=== PATIENT | female | born 1965 | race Caucasian/White ===

== ENCOUNTER 2017-05-22 11:40 | Emergency (ER) | payer OTHER ==
[~2017-05-22] VITALS: Ht 152.4 cm; Wt 46.3 kg
[2017-05-22] MEDS ORDERED: ONDA4ODT PO (12:35)
[2017-05-22] MEDS ORDERED: OMEPPI 20 MG-11 EACH PO (12:36)
[2017-05-22] MEDS ORDERED: LEVSOD100 PO (12:36)
[2017-05-22] MEDS ORDERED: Desyrel50 MG PO (12:36)
[2017-05-22] MEDS ORDERED: Bentyl20 MG PO (12:36)
[2017-05-22] MEDS ORDERED: ESCI10 PO (12:38)
[2017-05-22 13:10] LABS: Source, Urine Clean Catch
[2017-05-22 13:23] LABS: Bilirubin, Urine Neg (Neg); Blood, Urine 2+ (Neg); Glucose Qualitative, Urine Neg (Neg); Ketones, Urine Neg (Neg); Leukocyte Esterase, Urine 2+ (Neg); Nitrite, Urine Neg (Neg); Protein, Urine Neg (Neg); Urobilinogen, Urine NORM (Normal)
[2017-05-22 13:36] LABS: Appearance, Urine Clear (Clear); Color, Urine Pale Yellow (P-Yellow); White Blood Cells, Urine 50-100 /hpf (0-5)
[2017-05-22 13:37] LABS: Bacteria Mod /hpf; Squamous Epithelial Cells Mod /hpf (Few)
[2017-05-22] MEDS ORDERED: IBUP600 PO (13:43)
[2017-05-22] MEDS ORDERED: CYCL10 PO (13:43)
[2017-05-22] MEDS ORDERED: Keflex500 MG PO (13:43)
[2017-10-04] MEDS ORDERED: TRAZ150T57 PO (12:48)
[2017-10-04] MEDS ORDERED: Citalopram HBr10 MG PO (12:48)
[2017-10-04] MEDS ORDERED: LEVSOD100 PO (12:49)
[2017-10-04] MEDS ORDERED: Omeprazole20 M1 PO (12:50)
[2017-10-04] MEDS ORDERED: ONDA4 PO (12:54)
[2017-10-04] MEDS ORDERED: HYDHCL25 PO (12:54)
== END 2017-05-22 13:51 | disposition home or self-care (01) ==
LOC: ER 11:40
PROVIDERS: Physician Assistant
DX: N39.0 Urinary tract infection, site not specified (principal); Z79.899 Other long term (current) drug therapy; Z79.2 Long term (current) use of antibiotics; F17.210 Nicotine dependence, cigarettes, uncomplicated
CPT/HCPCS: 81001; 87086; 96372; 99283; J1885

== ENCOUNTER → 2017-07-28 | Outpatient (CLI) | payer OTHER ==
[~2017-07-28] MED LIST: Bentyl20 MG PO; CYCL10 PO; Desyrel50 MG PO; ESCI10 PO; IBUP600 PO; Keflex500 MG PO; LEVSOD100 PO; OMEPPI 20 MG-11 EACH PO; ONDA4ODT PO
[2017-07-30 12:57] LABS: HPV Genotype 16 Not Detected (NOTDET); HPV Genotype 18 Not Detected (NOTDET)
[2017-08-04 08:27] LABS: HPV High Risk Other Detected (NOTDET)
== END ==
LOC: LAB SHORT 09:00 → LAB 09:00
PROVIDERS: Nurse Practitioner Family
DX: Z12.4 Encounter for screening for malignant neoplasm of cervix (principal)
CPT/HCPCS: 87624; G0145

== ENCOUNTER 2017-10-13 13:22 | Emergency (ER) | payer OTHER ==
[~2017-10-13] VITALS: Ht 152.4 cm; Wt 53.1 kg
[~2017-10-13 13:22] MED LIST changes: +Citalopram HBr10 MG PO; +HYDHCL25 PO; +ONDA4 PO; +Omeprazole20 M1 PO; +TRAZ150T57 PO
[2017-10-13 14:09] LABS: BASOPHILS ABSOLUTE AUTO 0.04 K/mm3 (0.00-0.23); BASOPHILS PERCENT AUTO 0 % (0-2); EOSINOPHILS ABSOLUTE AUTO 0.03 K/mm3 (0.00-0.68); EOSINOPHILS PERCENT AUTO 0 % (0-6); Hematocrit 41.4 % (33.0-51.0); Hemoglobin 14.7 g/dL (11.5-16.0); IMMATURE GRAN ABSOLUTE AUTO 0.05 K/mm3 (0.00-0.10); IMMATURE GRAN PERCENT AUTO 0 % (0-1); LYMPHOCYTES ABSOLUTE AUTO 2.36 K/mm3 (0.84-5.20); LYMPHOCYTES PERCENT AUTO 19 % (21-46); MONOCYTES ABSOLUTE AUTO 0.91 K/mm3 (0.16-1.47); MONOCYTES PERCENT AUTO 7 % (4-13); Mean Corpuscular HGB 31.6 pg (26.0-34.0); Mean Corpuscular HGB Conc 35.5 g/dL (31.5-36.5); Mean Corpuscular Volume 89 fL (80-100); Mean Platelet Volume 8.9 fL (9.1-12.4); NEUTROPHILS ABSOLUTE AUTO 8.88 K/mm3 (1.96-9.15); NEUTROPHILS PERCENT AUTO 73 % (41-73); Platelet Count 411 K/mm3 (150-400); RDW Coefficient Variation 12.1 % (11.7-14.2); RDW Standard Deviation 39.6 fL (35.1-46.3); Red Blood Cell Count 4.65 M/mm3 (3.80-5.20); White Blood Cell Count 12.27 K/mm3 (4.00-11.30)
[2017-10-13 14:33] LABS: Alanine Aminotransfer (ALT/SGP 18 U/L (12-78); Albumin, Blood 4.4 g/dL (3.4-5.0); Albumin/Globulin Ratio 1.2 (0.8-1.8); Alk Phos 101 U/L (50-136); Anion Gap 13 mmol/L (6-16); Aspartate Aminotrans (AST/SGOT 28 U/L (12-37); Blood Urea Nitrogen 7 mg/dL (8-24); Bun/Creatinine Ratio 10.3 (12.0-20.0); CO2, Blood 22 mmol/L (21-32); Calcium, Blood 9.2 mg/dL (8.5-10.1); Chloride, Blood 101 mmol/L (98-108); Creatinine, Blood 0.68 mg/dL (0.40-1.00); Globulin, Blood 3.6 g/dL (2.2-4.0); Glomerular Filtration Rate >60 (60-); Glucose, Blood 110 mg/dL (70-99); Potassium, Blood 3.2 mmol/L (3.5-5.5); Sodium, Blood 136 mmol/L (136-145)
[2017-10-13] MEDS ORDERED: PRAZ1 PO (14:43)
== END 2017-10-13 16:35 | disposition home or self-care (01) ==
LOC: ER 13:22
PROVIDERS: Emergency Medicine
DX: K52.9 Noninfective gastroenteritis and colitis, unspecified (principal); F15.10 Other stimulant abuse, uncomplicated; F41.9 Anxiety disorder, unspecified; Z79.899 Other long term (current) drug therapy; F32.9 Major depressive disorder, single episode, unspecified; E03.9 Hypothyroidism, unspecified; F17.210 Nicotine dependence, cigarettes, uncomplicated
CPT/HCPCS: 36415; 51701; 80053; 81000; 83690; 85025; J1885; J2060

== ENCOUNTER 2019-03-17 23:09 | Inpatient (IN) | payer OTHER ==
[~2019-03-17] VITALS: Ht 152.4 cm; Wt 51.7 kg
[~2019-03-17 23:09] MED LIST changes: +PRAZ1 PO
[2019-03-17 23:28] LABS: BASOPHILS ABSOLUTE AUTO 0.06 K/mm3 (0.00-0.23); BASOPHILS PERCENT AUTO 1 % (0-2); EOSINOPHILS ABSOLUTE AUTO 1.02 K/mm3 (0.00-0.68); EOSINOPHILS PERCENT AUTO 11 % (0-6); Hematocrit 39.7 % (33.0-51.0); Hemoglobin 13.3 g/dL (11.5-16.0); IMMATURE GRAN ABSOLUTE AUTO 0.16 K/mm3 (0.00-0.10); IMMATURE GRAN PERCENT AUTO 2 % (0-1); LYMPHOCYTES ABSOLUTE AUTO 3.68 K/mm3 (0.84-5.20); LYMPHOCYTES PERCENT AUTO 39 % (21-46); MONOCYTES ABSOLUTE AUTO 0.62 K/mm3 (0.16-1.47); MONOCYTES PERCENT AUTO 7 % (4-13); Mean Corpuscular HGB 32.8 pg (26.0-34.0); Mean Corpuscular HGB Conc 33.5 g/dL (31.5-36.5); Mean Platelet Volume 8.5 fL (9.1-12.4); NEUTROPHILS ABSOLUTE AUTO 3.88 K/mm3 (1.96-9.15); NEUTROPHILS PERCENT AUTO 41 % (41-73); Platelet Count 316 K/mm3 (150-400); RDW Coefficient Variation 13.1 % (11.7-14.2); RDW Standard Deviation 47.2 fL (35.1-46.3); Red Blood Cell Count 4.05 M/mm3 (3.80-5.20); White Blood Cell Count 9.42 K/mm3 (4.00-11.30)
[2019-03-17 23:32] LABS: Source, Urine Clean Catch
[2019-03-17 23:32] LABS: Mean Corpuscular Volume 98 fL (80-100)
[2019-03-17 23:36] LABS: Appearance, Urine Clear (Clear); Bilirubin, Urine Neg (Neg); Blood, Urine Neg (Neg); Color, Urine Pale Yellow (P-Yellow); Glucose Qualitative, Urine Neg (Neg); Ketones, Urine Neg (Neg); Leukocyte Esterase, Urine Neg (Neg); Nitrite, Urine Neg (Neg); Protein, Urine Neg (Neg); Urobilinogen, Urine NORM (Normal)
[2019-03-17] MEDS ORDERED: OXYB5 PO (23:37)
[2019-03-17] MEDS ORDERED: TRAZ100 PO (23:38)
[2019-03-17] MEDS ORDERED: HYDPAM50 PO (23:38)
[2019-03-17] MEDS ORDERED: NAPR500 PO (23:39)
[2019-03-17] MEDS ORDERED: PRAZ1 PO (23:39)
[2019-03-17] MEDS ORDERED: FAMO20 PO (23:39)
[2019-03-17] MEDS ORDERED: OMEPRAZOLE20 MG PO (23:40)
[2019-03-17 23:46] LABS: Ethanol (Alcohol), Blood, Med 255 mg/dL; Salicylate 3.6 mg/dL (2.8-20.0)
[2019-03-17 23:47] LABS: Alanine Aminotransfer (ALT/SGP 20 U/L (12-78); Albumin, Blood 4.5 g/dL (3.4-5.0); Albumin/Globulin Ratio 1.6 (0.8-1.8); Alk Phos 81 U/L (50-136); Anion Gap 8 mmol/L (6-16); Aspartate Aminotrans (AST/SGOT 24 U/L (12-37); Bilirubin, Total 0.7 mg/dL (0.1-1.0); Blood Urea Nitrogen 10 mg/dL (8-24); Bun/Creatinine Ratio 16.6 (12.0-20.0); CO2, Blood 26 mmol/L (21-32); Chloride, Blood 99 mmol/L (98-108); Globulin, Blood 2.8 g/dL (2.2-4.0); Glomerular Filtration Rate >60 (60-); Glucose, Blood 87 mg/dL (70-99); Potassium, Blood 3.8 mmol/L (3.5-5.5); Sodium, Blood 133 mmol/L (136-145); Total Protein, Blood 7.3 g/dL (6.4-8.2)
[2019-03-17 23:47] LABS: U Amphetamine Screen Not Detected; U Barbituate Screen Not Detected; U Benzodiazapine Screen Not Detected; U Buprenorphine Screen Not Detected; U Cannabinoids Screen DETECTED; U Cocaine Screen Not Detected; U Methadone Screen Not Detected; U Methamphetamine Screen Not Detected; U Opiates Screen Not Detected; U Oxycodone Screen Not Detected; U Phencyclidine Screen Not Detected; U Propoxyphene Screen Not Detected
[2019-03-17 23:56] LABS: Acetaminophen, Random <2.0 ug/mL (10.0-30.0)
--- NOTE | 2019-03-18 01:05 | NUR ---
PT ARRIVES FROM ER TO ICU 7 VIA GURNEY FOR DX OVERDOSE WITH SUICIDAL INTENT, PT SLIDE TRANSFERRED TO BED WITH 3 STAFF ASSIST AND TOLERATES WELL. SHE ADMITS THAT SHE OVERDOSED WITH TRAZODONE 30 100 MG TABLETS, AND CONSUMED A 6 PACK OF BEER, SHE STATES THAT SHE WAS TRYING TO END HER LIFE AND THAT SHE CONTINUES TO WANT TO END HER LIFE AT THIS TIME. SHE RESTS QUIETLY WHEN UNDISTURBED HOWEVER ROUSES EASILY TO VERBAL STIMULI AT THIS TIME. SHE IS ABLE TO STATE THAT THIS IS TUESDAY IN MARCH 2019 HOWEVER SHE STATES THAT SHE DOES NOT TRACK THE EXACT DATE AT BASELINE. SHE IS ABLE TO STATE THAT SHE IS IN THE HOSPITAL IN "EITHER [place] OR [place], I'M NOT SURE" REORIENTED TO BEING IN [place]. PT DENIES NAUSEA ON ARRIVAL TO ICU HOWEVER HAS 300 ML OF DARK REDMAN/GREEN EMESIS PRIOR TO COMPLETION OF ADMISSION ASSESSMENT. SHE IS SLOW TO RESPOND VERBALLY AND IS NOTED TO SLUR HER WORDS. ADMITS TO PAIN TO RIGHT RIBS THAT SHE STATES HAS BEEN ONGOING X 4 WEEKS, STATES THAT SHE FELL CHASING HER DOG AT THAT TIME. SHE IS SPEAKING IN FULL SENTENCES, NO VISIBLE INCREASED WORK OF BREATHING, LUNGS CLEAR THROUGHOUT AND PT MAINTAINS OXYGEN SATURATION MID TO UPPER 90S AT THIS TIME. HRR, SINUS RHYTHM NOTED ON MONITOR, RATE 80S, PULSES ARE FULL X 4 EXTREMITIES, SKIN IS PWD, PRESSURE MAINTAINING, NO EDEMA IS NOTED. ABD MODERATELY DISTENDED, PT STATES THAT THIS IS NEW FOR HER, NO GRIMACING IS NOTED WITH PALPATION, PT DOES REPORT FEELING NEED TO VOID. 475 ML CLEAR PALE YELLOW URINE IN BEDPAN WITH OVERFLOW NOTED TO SHEETS, PT TOLERATED WELL. DISCUSSED ICU ADMISSION FOR OVERDOSE WITH PT WELL HIGH RISK SUICIDE PRECAUTIONS INCLUDING SITTER AT BEDSIDE, UNDERSTANDING VERBALIZED.
[2019-03-18] MEDS ORDERED: LEVSOD25 PO (01:23)
[2019-03-18 05:24] LABS: Hematocrit 34.8 % (33.0-51.0); Hemoglobin 11.8 g/dL (11.5-16.0); Mean Corpuscular HGB 32.7 pg (26.0-34.0); Mean Corpuscular HGB Conc 33.9 g/dL (31.5-36.5); Mean Corpuscular Volume 96 fL (80-100); Mean Platelet Volume 8.5 fL (9.1-12.4); Platelet Count 307 K/mm3 (150-400); RDW Standard Deviation 46.2 fL (35.1-46.3); Red Blood Cell Count 3.61 M/mm3 (3.80-5.20); White Blood Cell Count 6.41 K/mm3 (4.00-11.30)
[2019-03-18 05:47] LABS: Salicylate 3.7 mg/dL (2.8-20.0)
[2019-03-18 05:48] LABS: Alanine Aminotransfer (ALT/SGP 19 U/L (12-78); Albumin, Blood 3.6 g/dL (3.4-5.0); Albumin/Globulin Ratio 1.4 (0.8-1.8); Alk Phos 68 U/L (50-136); Anion Gap 10 mmol/L (6-16); Aspartate Aminotrans (AST/SGOT 17 U/L (12-37); Bilirubin, Total 0.8 mg/dL (0.1-1.0); Blood Urea Nitrogen 8 mg/dL (8-24); CO2, Blood 22 mmol/L (21-32); Calcium, Blood 7.7 mg/dL (8.5-10.1); Chloride, Blood 107 mmol/L (98-108); Creatinine, Blood 0.57 mg/dL (0.40-1.00); Globulin, Blood 2.6 g/dL (2.2-4.0); Glomerular Filtration Rate >60 (60-); Glucose, Blood 80 mg/dL (70-99); Potassium, Blood 4.3 mmol/L (3.5-5.5); Sodium, Blood 139 mmol/L (136-145); Total Protein, Blood 6.2 g/dL (6.4-8.2)
--- NOTE | 2019-03-18 06:31 | NUR ---
PT NEW ADMIT THIS SHIFT FOR OVERDOSE, STATES THAT SHE TOOK HER TRAZODONE AND "THE OTHER ONE THAT MAKES YOU SLEEPY" ALONG WITH A 6 PACK OF BEER. SHE REMAINS AROUSABLE TO VERBAL STIMULI THIS AM AND AWARE THAT SHE IS HOSPITALIZED FOR OVERDOSE ATTEMPT. SHE DID HAVE ONE EPISODE OF EMESIS DURING ADMISSION ASSESSMENT HOWEVER DENIED COMPLAINT OF NAUSEA BOTH PRIOR TO EMESIS AND AFTERWARD. SHE ADMITS TO ATTEMPTING TO END HER LIFE WITH THE OVERDOSE AND STATES THAT SHE DOES STILL FEEL SUICIDAL. LUNGS REMAIN CLEAR THROUGHOUT, SATS MAINTAIN ON ROOM AIR, PT IS NOTED TO SNORE WITH SLEEP WHICH SHE REPORTS HER BASELINE, SHE HAS BEEN TOLD THAT SHE HAS PERIODS OF APNEA WITH SLEEP AN OUTPT WELL, SATS RARELY DECREASE TO 89% ON ROOM AIR OTHERWISE MID 90S. HRR, SINUS RHYTHM CONTINUES, RATE 70S, BLOOD PRESSURE MAINTAINING, PULSES REMAIN FULL, NO EDEMA NOTED. WILL CONT TO MONITOR AND REPORT TO DAY SHIFT.
--- NOTE | 2019-03-18 09:14 | NUR ---
SPOKE TO POISON CONTROL REGARDING SALICYLATE LEVEL THIS MORNING. REPORTED LEVEL OF 3.5. POISON CONTROL PERSONNEL STATED NO FURTHER SALICYLATE LEVELS NEED TO BE DRAWN.
--- NOTE | 2019-03-18 12:04 | NUR ---
REASSESSMENT: PATIENT ALERT AND COOPERATIVE, WITHDRAWN WITH FLAT AFFECT. HRR, VSS. STATES PAIN IS WITHIN HER ACCEPTABLE LEVEL AT THIS TIME. COOPERATIVE WITH SHOWER. SEEN BY COMPASS PERSONNEL EARLIER. SALICYLATE LEVEL 3.5, NO FURTHER LABS NEEDED PER POISON CONTROL.
--- NOTE | 2019-03-18 16:45 | NUR ---
RECEIVED REPORT FROM NISH GILLIS RN, ASSUMED CARE, PATIENT IS A 1:1 SITTER AT BEDSIDE, ON MONITOR, HIGH RISK SUICIDE, PATIENT IS SLEEPING AT THIS TIME, AFEBRILE, NO SIGNS OF PAIN NOTED, CALL LIGHT IN REACH, WILL CONTINUE TO MONITOR.
--- NOTE | 2019-03-18 17:55 | NUR ---
SHIFT SUMMARY NOTE: NO ACUTE EVENTS DURING THIS SHIFT, PATIENT IS A HIGH RISK SUICIDE AND IS ON MONITOR AND HAS A 1:1 SITTER AT BEDSIDE, TELEPSYCHE SCHEDULED FOR 20:15 THIS EVENING, PATIENT HAS BEEN SLEEPING MOST OF THE DAY, RECEIVED A SHOWER, POISON CONTROL HAS SIGNED OFF AT THIS TIME, FOR DETAILS PLEASE SEE SHIFT ASSESSMENT DOCUMENTATIONS AND NURSES NOTES, CALL LIGHT IN REACH, WILL CONTINUE TO MONITOR AND GIVE REPORT TO ONCOMING NOC SHIFT.
--- NOTE | 2019-03-18 21:25 | NUR ---
ASSUMPTION OF CARE: PT ALERT BUT SLEEPY. NO THOUGHTS OF SELF HARM AT THIS TIME. PT IS WITHDRAWN AND AFFECT IS FLAT. HOWEVER PT IS COOPERATIVE. LUNG SOUNDS CLEAR. SP02 >90% ON RA. SBP AND PULSE STABLE. BOWEL TONES PRESENT. NO BM SO FAR. PT ABLE TO VOID ON OWN. WILL CONTINUE TO MONITOR.
--- NOTE | 2019-03-19 05:50 | NUR ---
SHIFT SUMMARY: NO COMPLAINTS THIS SHIFT. DENIES S/I/SELF HARM. VITALS STABLE. NSR, BRADYCARDIA WHILE SLEEPING-HR IN 40S. HOWEVER, WHEN AWAKE HR IN THE 60S. 20G LAC SL, 18G RAC SL.
--- NOTE | 2019-03-19 09:30 | NUR ---
AM ASSESSMENT PT UNDER CONSTANT ONE ON ONE SUPERVISION R/T DX. PT RESTING IN BED, OPENS EYES TO VOICE, A&OX4, DENIES DESIRE TO HARM SELF. PT HEART RATE 60-70s, NSR. LUNGS CTA, RM AIR. BS PRESENT. PT STATES HAS SOFT STOOLS AND URGE INCONTINENCE. SHE STATES SHE WEARS A PAD OR PULLUP ALL THE TIME. PT AMBULATES SELF TO BATHROOM WITH SUPERVISION. PT SPOKE WITH THE STOVE BOTTOM WORKER AFTER DR. MAN STATES PT CAN GO HOME TODAY. FOLLOWUP APPOINTMENTS WILL BE MADE BY THIS RN AND INCLUDED IN DC PAPERWORK ACCORDING TO DC ORDERS.
[2019-03-19] MEDS ORDERED: LEVSOD50 PO (11:57)
[2019-03-19] MEDS ORDERED: CITA20 PO (11:58)
[2019-03-19] MEDS ORDERED: LEVSOD100 PO (12:15)
--- NOTE | 2019-03-19 13:00 | NUR ---
FOLLOW UP APPTS FOLLOW UP APPOINTMENT MADE WITH DR. SALENA JAMISON FOR 03/28 @ 2393. PT INFORMED OF APPOINTMENT. PT IS TO F/U WITH [facility] AND NO APPOINTMENT NEEDED WALK-INS ARE WELCOME. PT AWARE OF THIS ALSO. SCRIPT FOR TSH IN 4-6 WEEKS GIVEN TO PT AND INSTRUCTIONS GIVEN ALONG WITH MEDICATION CHANGE FOR SYNTHROID. ALL QUESTIONS ANSWERED AT THIS TIME. DC TO FOLLOW SOON.
--- NOTE | 2019-03-19 13:45 | NUR ---
DISCHARGE NOTE PT IVs DC'D. DISCHARGE INSTRUCTIONS GIVEN, INCLUDING CHANGING SYNTHROID DOSE TO 0.1mg AND CYMBALTA AND SYNTHROID ARE READY TO BE PICKED UP AT [facility]. BOYFRIEND, ED, ALSO INFORMED OF NEED TO STOP FOR PRESCRIPTIONS ON THE WAY HOME. PT SUICIDE AWARENESS INFO AND HOTLINE NUMBERS STRESSED. PT REMOVED FROM MONITOR. PT DRESSED SELF. PT AND ALL BELONGINGS, INCLUDING PHONE AND MEDICATIONS ARE TAKEN OUTSIDE IN W/C BY THIS RN WITHOUT DIFFICULTIES. PT BOYFRIEND, ED, TO TAKE HOME PER PRIVATE VEHICLE. DOG WITH PT AND PT SEEMS HAPPY TO BE DISCHARGED HOME. PT CONTINUES TO DENY DESIRE TO HARM SELF.
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
== END 2019-03-19 14:00 | disposition home or self-care (01) | DRG 918 ==
LOC: ER 23:09 → ICUE 23:10 → ICUW 23:10 → ICUE 03-18 01:04
PROVIDERS: Emergency Medicine; ADMIT Internal Medicine
DX: T43.212A Poisoning by selective serotonin and norepinephrine reuptake inhibitors, intentional self-harm, initial encounter (principal); E03.9 Hypothyroidism, unspecified; F41.8 Other specified anxiety disorders; G47.00 Insomnia, unspecified; K21.9 Gastro-esophageal reflux disease without esophagitis; F10.129 Alcohol abuse with intoxication, unspecified; Z79.899 Other long term (current) drug therapy
CPT/HCPCS: 36415; 80053; 81003; 81025; 83735; 84439; 84443; 85025; 85027; 86704; 86708; 86803; 87340; 93005; 93010; 96360; 96361; 96372; 99285-25; G0378; G0480; J1650; J7030; J7120